=== PATIENT | female | born 1990 | race Caucasian/White ===

== ENCOUNTER 2016-10-18 18:26 | Emergency (ER) | payer SELFPAY ==
[~2016-10-18] VITALS: Ht 157.5 cm; Wt 54.1 kg
[2016-10-18 20:40] VITALS: BP 126/72
== END 2016-10-18 20:40 | disposition home or self-care (01) ==
LOC: ED 18:26
DX: R50.9 Fever, unspecified (principal); R11.10 Vomiting, unspecified; J45.909 Unspecified asthma, uncomplicated
CPT/HCPCS: Q0162

== ENCOUNTER 2016-10-20 14:07 | Emergency (ER) | payer SELFPAY ==
[~2016-10-20] VITALS: Ht 157.5 cm; Wt 53.6 kg
[2016-10-20 15:59] VITALS: BP 121/78
== END 2016-10-20 15:59 | disposition home or self-care (01) ==
LOC: ED 14:07
DX: J45.901 Unspecified asthma with (acute) exacerbation (principal)
CPT/HCPCS: J7512; J7613

== ENCOUNTER 2016-12-11 08:13 | Emergency (ER) | payer MEDICAID ==
[~2016-12-11] VITALS: Ht 157.5 cm; Wt 56.2 kg
[2016-12-11 10:01] VITALS: BP 118/81
== END 2016-12-11 10:01 | disposition home or self-care (01) ==
LOC: ED 08:13
DX: I10 Essential (primary) hypertension (principal)
CPT/HCPCS: J0171; J7512; J7613; J7644; Q0092

== ENCOUNTER 2016-12-21 00:17 | Emergency (ER) | payer MEDICAID ==
[2016-12-21 00:50] VITALS: BP 121/71
== END 2016-12-21 01:46 | disposition left against medical advice (07) ==
LOC: ED 00:17
DX: R50.9 Fever, unspecified (principal); Z53.21 Procedure and treatment not carried out due to patient leaving prior to being seen by health care provider

== ENCOUNTER 2017-03-20 21:01 | Emergency (ER) | payer MEDICAID ==
[~2017-03-20] VITALS: Ht 157.5 cm; Wt 57.6 kg
[2017-03-20 21:08] VITALS: Ht 157.5 cm; Wt 57.6 kg
[2017-03-20 23:31] VITALS: BP 121/65
== END 2017-03-20 23:31 | disposition home or self-care (01) ==
LOC: ED 21:01
DX: J45.901 Unspecified asthma with (acute) exacerbation (principal); J20.9 Acute bronchitis, unspecified
CPT/HCPCS: 87804; J2930; J7620

== ENCOUNTER 2017-08-22 22:21 | Emergency (ER) | payer MEDICAID ==
[~2017-08-22] VITALS: Ht 157.5 cm; Wt 60.3 kg
[2017-08-22 22:27] VITALS: Ht 157.5 cm; Wt 60.3 kg
[2017-08-22 23:28] VITALS: BP 121/77
== END 2017-08-22 23:28 | disposition left against medical advice (07) ==
LOC: ED 22:21
DX: Z53.21 Procedure and treatment not carried out due to patient leaving prior to being seen by health care provider (principal)

== ENCOUNTER 2017-12-12 15:25 | Emergency (ER) | payer MEDICAID ==
[2017-12-12 15:26] VITALS: Ht 157.5 cm
[2017-12-12 17:12] VITALS: BP 120/75
== END 2017-12-12 17:12 | disposition home or self-care (01) ==
LOC: ED 15:25
DX: J45.901 Unspecified asthma with (acute) exacerbation (principal); R51 Headache
CPT/HCPCS: J7512; J7613; J7644

== ENCOUNTER 2019-10-29 08:04 | Emergency (ER) | payer MEDICAID ==
[~2019-10-29] VITALS: Ht 162.6 cm; Wt 59.0 kg
[2019-10-29 08:11] VITALS: Ht 162.6 cm; Wt 59.0 kg
[2019-10-29 09:35] VITALS: BP 116/75
== END 2019-10-29 09:35 | disposition home or self-care (01) ==
LOC: ED 08:04
DX: M77.9 Enthesopathy, unspecified (principal); J45.909 Unspecified asthma, uncomplicated